=== PATIENT | male | born 1965 | race Caucasian/White ===

== ENCOUNTER 2020-10-26 13:49 | Inpatient (IN) | payer MEDICARE ==
[~2020-10-26] VITALS: Ht 182.9 cm; Wt 58.1 kg
--- NOTE | 2020-10-26 14:23 | EKG ---
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
--- NOTE | 2020-10-26 14:43 | PHYS DOC ---
Past History Past Medical History: Schizophrenia Smoking: Cigarettes (2 packs/day) Alcohol Use: Heavy Adult General Chief Complaint Chief Complaint: SHORTNESS OF BREATH HPI HPI Patient is a 55-year-old male presenting for shortness of breath. States this has been ongoing for past 2 weeks. Has history of smoking 2 packs cigarettes daily. No change in health. States he saw his primary care physician roughly 2.5 weeks ago and was tested for Covid, he does not know what the results were. Takes an injection infrequently for schizophrenia otherwise no other medications taken on a daily basis. No history of cardiac abnormalities, does not utilize inhalers at home. Reports ongoing shortness of breath and productive cough, no change in sputum purulence or production. No fever or known COVID-19 contact, no chest pain, abdominal pain, urinary symptoms. Was brought in by his mother because he started voicing feelings of dizziness to his mother while at home and has had several episodes of witnessed mechanical falls with patient hitting his head without loss of consciousness. He is not on any blood thinners/ anticoagulants Review of Systems Review of Systems Fourteen body systems of review of systems have been reviewed. See HPI for pertinent positives and negative responses, other smith all other systems are negative, non-pertinent or non-contributory Current Medications Current Medications Current Medications Medications (Trade) Dose Ordered Sig/Alba Start Time Stop Time Status Last Admin Dose Admin Aspirin (Aspirin Chewable) 162 mg 1X ONCE 10/26/20 14:45 10/26/20 14:50 DC 10/26/20 15:29 Azithromycin (Zithromax) 500 mg STK-MED ONCE 10/26/20 15:38 10/26/20 15:38 DC Azithromycin 500 mg/Sodium Chloride 250 ml @ 250 mls/hr 1X ONCE 10/26/20 15:30 10/26/20 16:29 DC 10/26/20 15:42 Ceftriaxone Sodium 1 gm/ Sodium Chloride 50 ml @ 100 mls/hr 1X ONCE 10/26/20 15:30 10/26/20 15:59 DC 10/26/20 15:32 Ceftriaxone Sodium (Rocephin) 1 gm STK-MED ONCE 10/26/20 15:31 10/26/20 15:31 DC Prednisone (Prednisone) 60 mg 1X ONCE 10/26/20 15:45 10/26/20 15:57 DC 10/26/20 15:49 Sodium Chloride 1,000 ml @ 125 mls/hr 1X ONCE 10/26/20 15:45 10/26/20 23:44 10/26/20 15:51 Allergies Allergies Allergies Coded Allergies Type Severity Reaction Last Updated Verified No Known Drug Allergies 10/26/20 No Physical Exam Physical Exam Constitutional: GCS 15, appears disheveled, poor hygiene HEENT: Head: Normocephalic and atraumatic. TMs clear, no hemotympanum, negative arellano sign Conjunctivae and EOM are normal. Pupils are equal, round, and reactive to light. Oropharynx is clear and moist. No hematomas or lacerations or abrasions to face or scalp OP clear, no blood, no malocclusion, dentition intact Nares clear, no nasal septal hematoma Midface stable, abrasion noted to left superior portion of cheekbone Neck: C-spine midline nontender, no step-offs, no nuchal rigidity Cardiovascular: Tachycardic, regular rhythm and normal heart sounds. Pulmonary/Chest: No respiratory distress but is tachypneic. Exhibits increased work of breathing with diffuse wheezes and rhonchi bilaterally Abdominal: Soft. Bowel sounds are normal. Pt exhibits no distension. There is no tender ness. Musculoskeletal: No bony tenderness to extremities, no deformities, full ROM extremities Chest wall stable Pelvis stable and non-tender No vertebral TTP and spine without stepoffs Neurological: Pt is alert and oriented to person, place, and time. Moving all extremities willfully, able to wiggle all fingers and toes Alert and oriented x 3 Motor and sensory function intact Unstable gait Skin: Skin is warm and dry. No abrasions, no lacerations Psychiatric: Tangential, odd affect, elated mood Current Patient Data Vital Signs Vital Signs Date Time Temp Pulse Resp B/P (MAP) Pulse Ox O2 Delivery O2 Flow Rate FiO2 10/26/20 14:36 96 21 138/101 (113) 99 Nasal Cannula 3.0 10/26/20 13:49 98.9 126 28 157/78 (104) 85 Room Air Lab Results Laboratory Tests Test 10/26/20 14:30 10/26/20 15:28 10/26/20 15:55 White Blood Count 13.4 x10^3/uL Red Blood Count 4.79 x10^6/uL Hemoglobin 15.2 g/dL Hematocrit 45.6 % Mean Corpuscular Volume 95 fL Mean Corpuscular Hemoglobin 32 pg Mean Corpuscular Hemoglobin Concent 33 g/dL Red Cell Distribution Width 12.8 % Platelet Count 260 x10^3/uL Neutrophils (%) (Auto) 87 % Lymphocytes (%) (Auto) 3 % Monocytes (%) (Auto) 10 % Eosinophils (%) (Auto) 0 % Basophils (%) (Auto) 0 % Neutrophils # (Auto) 11.7 x10^3uL Lymphocytes # (Auto) 0.4 x10^3/uL Monocytes # (Auto) 1.3 x10^3/uL Eosinophils # (Auto) 0.0 x10^3/uL Basophils # (Auto) 0.0 x10^3/uL Prothrombin Time 9.7 SEC Prothromb Time International Ratio 0.9 Activated Partial Thromboplast Time 29 SEC D-Dimer ([place]) 0.74 mg/L Sodium Level 115 mmol/L Potassium Level 4.4 mmol/L Chloride Level 78 mmol/L Carbon Dioxide Level 34 mmol/L Anion Gap 3 Blood Urea Nitrogen 12 mg/dL Creatinine 0.6 mg/dL Estimated GFR (Cockcroft-Gault) 139.4 BUN/Creatinine Ratio 20 Glucose Level 130 mg/dL Calcium Level 8.6 mg/dL Total Bilirubin 1.1 mg/dL Aspartate Amino Transf (AST/SGOT) 46 U/L Alanine Aminotransferase (ALT/SGPT) 30 U/L Alkaline Phosphatase 85 U/L Troponin I Quantitative < 0.017 ng/mL [id number] Natriuretic Peptide 272 pg/mL Total Protein 7.0 g/dL Albumin 3.5 g/dL Albumin/Globulin Ratio 1.0 Urine Opiates Screen Neg Urine Methadone Screen Neg Urine Barbiturates Neg Urine Phencyclidine Screen Neg Urine Amphetamine/Methamphetamine Neg Urine Benzodiazepines Screen Neg Urine Cocaine Screen Neg Urine Cannabinoids Screen Pos Urine Ethyl Alcohol Neg Ethyl Alcohol Level < 10 mg/dL Urine Collection Type Unknown Urine Color [place] Urine Clarity Clear Urine pH 6.5 Urine Specific [place] 1.025 Urine Protein 100 mg/dl Urine Glucose (UA) Neg mg/dL Urine Ketones (Stick) 40 mg/dL Urine Blood Trace Urine Nitrite Neg Urine Bilirubin Small Urine Urobilinogen Dipstick 2.0 mg/dL Urine Leukocyte Esterase Neg Urine RBC 0 /HPF Urine WBC 0 /HPF Urine Squamous Epithelial Cells None /LPF Urine Bacteria 0 /HPF Current Medications Medications (Trade) Dose Ordered Sig/Alba Route PRN Reason Start Time Stop Time Status Last Admin Dose Admin Aspirin (Aspirin Chewable) 162 mg 1X ONCE PO 10/26/20 14:45 10/26/20 14:50 DC 10/26/20 15:29 Ceftriaxone Sodium 1 gm/ Sodium Chloride 50 ml @ 100 mls/hr 1X ONCE IV 10/26/20 15:30 10/26/20 15:59 DC 10/26/20 15:32 Azithromycin 500 mg/Sodium Chloride 250 ml @ 250 mls/hr 1X ONCE IV 10/26/20 15:30 10/26/20 16:29 DC 10/26/20 15:42 Sodium Chloride 50 ml @ As Directed STK-MED ONCE .ROUTE 10/26/20 15:31 10/26/20 15:31 DC Ceftriaxone Sodium (Rocephin) 1 gm STK-MED ONCE .ROUTE 10/26/20 15:31 10/26/20 15:31 DC Sodium Chloride 250 ml @ As Directed STK-MED ONCE .ROUTE 10/26/20 15:38 10/26/20 15:38 DC Azithromycin (Zithromax) 500 mg STK-MED ONCE IV 10/26/20 15:38 10/26/20 15:38 DC Sodium Chloride 1,000 ml @ 125 mls/hr 1X ONCE IV 10/26/20 15:45 10/26/20 23:44 10/26/20 15:51 Prednisone (Prednisone) 60 mg 1X ONCE PO 10/26/20 15:45 10/26/20 15:57 DC 10/26/20 15:49 EKG EKG EKG ordered and interpreted by myself at 1426 hrs. as sinus rhythm at 97 bpm, unremarkable intervals, no axis deviation, incomplete bundle branch block, no acute ischemic findings, no STEMI Repeat EKG ordered and interpreted by myself at 1608 hrs. sinus rhythm at 5 bpm, unremarkable intervals, no axis deviation, incomplete right bundle branch, no acute ischemic findings no STEMI, no no change from prior Radiology/Procedures Radiology/Procedures AP chest. HISTORY: Short of breath AP view was taken of the chest. Lungs are free of acute infiltrates. Heart is normal in size. There is no pleural effusion. IMPRESSION: 1. No acute infiltrates. Electronically signed by: Angel Perez MD (10/26/2020 2:59 PM) [facility] HEAD INDICATION: Reason: Syncope, first ever episode / Spl. Instructions: / History: COMPARISON: 10/01/2005 Exposure: One or more of the following individualized dose reduction techniques were utilized for this examination: 1. Automated exposure control 2. Adjustment of the mA and/or kV according to patient size 3. Use of iterative reconstruction technique TECHNIQUE: 5 mm contiguous axial images were obtained from the skull base to the vertex in both bone and soft tissue algorithm. FINDINGS: Mild bilateral periventricular white matter hypodensities likely chronic small vessel ischemic disease. No evidence of acute intracranial hemorrhage. No extra-axial fluid collections. No mass effect or midline shift. Ventricular size is appropriate. Basal cisterns are patent. No fractures identified.Leon-white differentiation is preserved.Globes and orbits are within normal limits. Paranasal sinuses and mastoid air cells are clear. IMPRESSION: No acute intracranial findings. Electronically signed by: Jeovanny Noyola MD (10/26/2020 4:10 PM) [id number] Examination: CT angiography chest with IV contrast HISTORY: History of shortness of breath, elevated d-dimer COMPARISON: None available Technique: Axial CT angiographic images of chest were performed with IV contrast. Coronal and sagittal 3-D MIP reformats are performed. Exposure: One or more of the following individualized dose reduction techniques were utilized for this examination: 1. Automated exposure control 2. Adjustment of the mA and/or kV according to patient size 3. Use of iterative reconstruction technique FINDINGS: There is a 2.2 cm hypodense nodule left lobe of the thyroid gland. The central airways are patent. The ascending aorta measures 3.9 cm in transverse dimension. There is no evidence of filling defect identified in the main pulmonary arterial trunk and right and left main pulmonary arteries and the visualized lobar, segmental branches of the pulmonary arteries. Moderate bilateral lung emphysematous changes. There are faint patchy airspace opacities identified in the right lung base with the small questionable cavitary nodule measuring 9 mm. The liver, spleen, adrenals grossly appears unremarkable Cystic structure identified in the left kidney measuring 2.6 cm. Mild degenerative changes thoracic spine IMPRESSION: 1. No evidence of pulmonary embolism. 2. Faint patchy airspace opacities identified in the right lung base with small questionable cavitary nodule measuring 9 mm could be inflammatory or infectious etiology Follow-up to resolution. 3. Moderate bilateral lung emphysematous changes. 4. 2.2 cm hypodense nodule identified in the left lobe of the thyroid gland. Follow-up nonemergent ultrasound thyroid gland can be considered. Electronically signed by: Jeovanny Noyola MD (10/26/2020 4:55 PM) [id number] Heart Score HEART Score for Chest Pain: HEART Score for Chest Pain Response (Comments) Value History Slighlty/Non-Suspicious 0 ECG Normal 0 Age >45 - < 65 1 Risk Factors 1 or 2 Risk Factors 1 Troponin < Normal Limit 0 Total 2 Risk Factors: Risk Factors: DM, Current or recent (<one month) smoker, HTN, HLP, family history of CAD, obesity. Risk Scores: Risk Factors: DM, Current or recent (<one month) smoker, HTN, HLP, family history of CAD, obesity. Course & Med Decision Making Course & Med Decision Making Pertinent Labs and Imaging studies reviewed. (See chart for details) Discussed most concerning finding of hyponatremia with patient, likely due to ongoing alcohol abuse and likely psychiatric medication. I also discussed concern for right lower lobe pneumonia that would best respond to IV antibiotic therapy given clinical scenario I contacted patient's primary care physician who will also serve as hospitalist, he agreed need for admission and accepted patient under his care in ICU setting Patient tolerated ER intervention well. IV normal saline started, further diagnostic work-up to better determine cause of patient's hyponatremia added on, IV antibiotics administered. All questions and concerns addressed prior to ER transport to [facility] for admission Critical Care Time This patient required critical care. Due to the fact that the patient required a significant amount of one on one physician - patient contact time, ordering and review of studies, arranging urgent treatment with development of a management plan, evaluation of patients response to treatment with frequent reassessments, and discussions with other providers this patient required 65 minutes of critical care time. Critical care time was indicated due to the inherent instability and/or potential for instability in this patient. The critical care time that is allocated to this patient is above and beyond any time spent on any other billable procedures performed on this patient. Dragon Disclaimer Dragon Disclaimer This electronic medical record was generated, in whole or in part, using a voice recognition dictation system. Departure Departure: Impression: Primary Impression: Hyponatremia Additional Impressions: Person under investigation for COVID-19 Sepsis Right lower lobe pneumonia Left thyroid nodule Disposition: ADMITTED INPT THIS HOSP (ICU) Admitting Physician: Abimael Suazo Condition: CRITICAL Referrals: ABIMAEL SUAZO MD (PCP) Problem Qualifiers JULIETTE CARTER DO Oct 26, 2020 14:43
[2020-10-26] MEDS ORDERED: ASPIRIN CHEWABLE 81 MG TABLET. PO ONE (14:45)
[2020-10-26 15:10] LABS: BASO % 0 % (0-3); EOS % 0 % (0-3); HEMATOCRIT 45.6 % (39.0-53.0); HEMOGLOBIN 15.2 g/dL (13.0-17.5); LYMPH # 0.4 x10^3/uL (1.0-4.8); LYMPH % 3 % (24-48); MEAN CORPUSCULAR HEMOGLOBIN 32 pg (25-35); MEAN CORPUSCULAR HGB CONC 33 g/dL (31-37); MEAN CORPUSCULAR VOLUME 95 fL (79-100); MONO # 1.3 x10^3/uL (0.0-1.1); MONO % 10 % (0-9); NEUT # 11.7 x10^3uL (1.8-7.7); NEUT % 87 % (31-73); PLATELET COUNT 260 x10^3/uL (140-400); RED BLOOD COUNT 4.79 x10^6/uL (4.30-5.70); RED CELL DISTRIBUTION WIDTH 12.8 % (11.5-14.5); WHITE BLOOD COUNT 13.4 x10^3/uL (4.0-11.0)
--- NOTE | 2020-10-26 15:10 | RAD ---
AP chest. HISTORY: Short of breath AP view was taken of the chest. Lungs are free of acute infiltrates. Heart is normal in size. There i s no pleural effusion. IMPRESSION: 1. No acute infiltrates. Electronically signed by: Angel Perez MD (10/26/2020 2:59 PM) [facility]
[2020-10-26 15:28] LABS: ALBUMIN 3.5 g/dL (3.4-5.0); CALCIUM 8.6 mg/dL (8.5-10.1); CREATININE 0.6 mg/dL (0.7-1.3); GFR 139.4; POTASSIUM 4.4 mmol/L (3.5-5.1); TOTAL BILIRUBIN 1.1 mg/dL (0.2-1.0)
[2020-10-26] MEDS ORDERED: AZITHROMYCIN 500 MG in IV NORMAL SALINE 250ML 250 ML IV ONE (15:30)
[2020-10-26] MEDS ORDERED: IV NORMAL SALINE 50ML 50 ML ONE (15:31)
[2020-10-26] MEDS ORDERED: cefTRIAXone SODIUM 1 GM VIAL ONE (15:31)
[2020-10-26] MEDS ORDERED: AZITHROMYCIN 500 MG VIAL. IV ONE (15:38)
[2020-10-26] MEDS ORDERED: IV NORMAL SALINE 250ML 250 ML ONE (15:38)
[2020-10-26] MEDS ORDERED: predniSONE 20 MG TABLET PO ONE (15:45)
[2020-10-26] MEDS ORDERED: IV NORMAL SALINE 1,000ML 1,000 ML IV ONE (15:45)
[2020-10-26] MEDS ORDERED: IOHEXOL 350 MG/ML 100 ML VIAL. IV ONE (16:00)
--- NOTE | 2020-10-26 16:13 | RAD ---
CT HEAD INDICATION: Reason: Syncope, first ever episode / Spl. Instructions: / History: COMPARISON: 10/01/2005 Exposure: One or more of the following individualized dose reduction techniques were utilized for thi s examination: 1. Automated exposure control 2. Adjustment of the mA and/or kV according to patient size 3. Use of iterative reconstruction technique TECHNIQUE: 5 mm contiguous axial images were obtained from the skull base to the vertex in both bone and soft tissue algorithm. FINDINGS: Mild bilateral periventricular white matter hypodensities likely chronic small vessel ischemic diseas e. No evidence of acute intracranial hemorrhage. No extra-axial fluid collections. No mass effect or midline shift. Ventricular size is appropriate. Basal cisterns are patent. No fractures identified.Leon-white differentiation is preserved.Globes and orbits are within normal l imits. Paranasal sinuses and mastoid air cells are clear. IMPRESSION: No acute intracranial findings. Electronically signed by: Jeovanny Noyola MD (10/26/2020 4:10 PM) [id number]
[2020-10-26 16:21] LABS: BARBITURATES NEG (NEG); BENZODIAZEPINES NEG (NEG); CANNABINOIDS POS (NEG); COCAINE NEG (NEG); METHADONE NEG (NEG); OPIATES NEG (NEG); PHENCYCLIDINE NEG (NEG)
[2020-10-26 16:24] LABS: AMPHETAMINE/METHAMPHETAMINE NEG (NEG)
--- NOTE | 2020-10-26 16:30 | EKG ---
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
[2020-10-26 16:35] LABS: BACTERIA,URINE 0 /HPF (0-FEW); BILIRUBIN,URINE SMALL (NEG); CLARITY,URINE CLEAR; COLOR,URINE AMBER; GLUCOSE,URINE NEG (NEG); NITRITE,URINE NEG (NEG); RBC,URINE 0 /HPF (0-2); WBC,URINE 0 /HPF (0-4)
--- NOTE | 2020-10-26 16:59 | RAD ---
Examination: CT angiography chest with IV contrast HISTORY: History of shortness of breath, elevated d-dimer COMPARISON: None available Technique: Axial CT angiographic images of chest were performed with IV contrast. Coronal and sagitta l 3-D MIP reformats are performed. Exposure: One or more of the following individualized dose reduction techniques were utilized for thi s examination: 1. Automated exposure control 2. Adjustment of the mA and/or kV according to patient size 3. Use of iterative reconstruction technique FINDINGS: There is a 2.2 cm hypodense nodule left lobe of the thyroid gland. The central airways are patent. Th e ascending aorta measures 3.9 cm in transverse dimension. There is no evidence of filling defect areli ntified in the main pulmonary arterial trunk and right and left main pulmonary arteries and the visua lized lobar, segmental branches of the pulmonary arteries. Moderate bilateral lung emphysematous wei ges. There are faint patchy airspace opacities identified in the right lung base with the small quest ionable cavitary nodule measuring 9 mm. The liver, spleen, adrenals grossly appears unremarkable Cystic structure identified in the left kidney measuring 2.6 cm. Mild degenerative changes thoracic s pine IMPRESSION: 1. No evidence of pulmonary embolism. 2. Faint patchy airspace opacities identified in the right lung base with small questionable cavita ry nodule measuring 9 mm could be inflammatory or infectious etiology Follow-up to resolution. 3. Moderate bilateral lung emphysematous changes. 4. 2.2 cm hypodense nodule identified in the left lobe of the thyroid gland. Follow-up nonemergent u ltrasound thyroid gland can be considered. Electronically signed by: Jeovanny Noyola MD (10/26/2020 4:55 PM) [id number]
--- NOTE | 2020-10-26 17:00 | NUR ---
The patient, WHITNEY BALTAZAR, 55 y/o, M admitted by ABIMAEL SUAZO MD, was given written information regarding hospital policies, unit procedures and contact persons. Valuables were checked and left with patient. Call light in reach. WCM
[2020-10-26 17:30] VITALS: BP 145/116
[2020-10-26] MEDS ORDERED: MVI, ADULT NO.4 WITH VIT K 10 ML, FOLIC ACID INJ 1 MG, THIAMINE INJ 100 MG in IV NORMAL... IV ONE (18:15)
[2020-10-26 20:00] VITALS: BP 138/96
[2020-10-26 21:12] VITALS: BP 133/89
[2020-10-26 21:53] VITALS: BP 104/65
[2020-10-26 23:03] VITALS: BP 125/90
[2020-10-27] VITALS (23 sets, daily range): BP systolic 100–161; BP diastolic 63–115
[2020-10-27 06:42] LABS: BASO # 0.1 x10^3/uL (0.0-0.2); BASO % 1 % (0-3); EOS % 0 % (0-3); HEMATOCRIT 42.1 % (39.0-53.0); LYMPH # 0.5 x10^3/uL (1.0-4.8); LYMPH % 4 % (24-48); MEAN CORPUSCULAR HEMOGLOBIN 32 pg (25-35); MEAN CORPUSCULAR HGB CONC 33 g/dL (31-37); MEAN CORPUSCULAR VOLUME 95 fL (79-100); MONO # 1.6 x10^3/uL (0.0-1.1); MONO % 13 % (0-9); NEUT % 82 % (31-73); PLATELET COUNT 223 x10^3/uL (140-400); RED BLOOD COUNT 4.42 x10^6/uL (4.30-5.70); RED CELL DISTRIBUTION WIDTH 12.4 % (11.5-14.5); WHITE BLOOD COUNT 12.1 x10^3/uL (4.0-11.0)
[2020-10-27 07:01] LABS: ALBUMIN 2.9 g/dL (3.4-5.0); ALBUMIN/GLOBULIN RATIO 0.9 (1.0-1.7); ALK PHOS 70 U/L (46-116); ALT (SGPT) 24 U/L (16-63); ANION GAP 1 (6-14); AST (SGOT) 33 U/L (15-37); BLOOD UREA NITROGEN 8 mg/dL (8-26); BUN/CREATININE RATIO 27 (6-20); CARBON DIOXIDE 36 mmol/L (21-32); CHLORIDE 85 mmol/L (98-107); CREATININE 0.3 mg/dL (0.7-1.3); GFR > 300.0; GLUCOSE 146 mg/dL (70-99); SODIUM 122 mmol/L (136-145); TOTAL BILIRUBIN 0.6 mg/dL (0.2-1.0); TOTAL PROTEIN 6.1 g/dL (6.4-8.2)
--- NOTE | 2020-10-27 09:00 | NUR ---
pt has been restless and impulsive. Pt wanting to go smoke. Pt pulling on line. Redirected several times. Pt very congested. encouraged to deep cough. Pt stated on inhaler.
[2020-10-27] MEDS: NICOTINE 7MG PATCH. TD SCH (11:00)
[2020-10-27] MEDS: AZITHROMYCIN 250 MG TABLET. PO SCH (11:00)
[2020-10-27] MEDS: OLANZapine 5 MG TABLET PO SCH (11:00)
--- NOTE | 2020-10-27 11:00 | NUR ---
Pt restless and impulsive. Refused Ativan and nicotine patch. Dr Mackenzie here to see pt. Pt now agreeable to ativan and patch. IV restarted in LFA 20 gauge. Orders noted NS started.
[2020-10-27] MEDS: IV NORMAL SALINE 1,000ML 1,000 ML IV SCH ×2 (11:15→20:57)
[2020-10-27] MEDS: IPRATROPIUM/ALBUTEROL 20/100mcg/INH INHALER. INH SCH ×3 (12:00→20:56)
[2020-10-27] MEDS ORDERED: IPRATRPIUM/ALBUTEROL 0.5/2.5MG 3 ML NEBU. NEB SCH (12:00)
--- NOTE | 2020-10-27 12:57 | HP ---
ADMIT DATE: 10/26/2020 HISTORY OF PRESENT ILLNESS: A 55-year-old gentleman came in through the Emergency Room with increased shortness of breath, had a history of smoking 2 packs of cigarettes a day. The patient was seen by some other physician. He had a COVID test as noted, the results later, but in any case, the patient has some history of schizophrenia, but not taking any medication and for this point is the patient has been falling and then was found that his sodium was 115. As a result of the complicated matters here, the patient was admitted for IV antibiotic use at first, also some normal saline as well as some possible breathing treatments to make further evaluation on him as indicated. PAST MEDICAL HISTORY: Includes that of schizophrenia, tobacco abuse and alcohol abuse. He says he drinks about 3-4 beers a night and 2 shots of whiskey; smokes very heavily, has withdrawals if he does not smoke. FAMILY HISTORY: Unobtainable. ALLERGIES: He has no known drug allergies. MEDICATIONS: As noted he has not been taking his home medications and not quite sure even what they are. REVIEW OF SYSTEMS: As noted, some coughing, generalized weakness, obviously schizoid personality with multiple abrasions on his left forehead as well as his right knee scabbed over. He fell a few days ago and has some infection in there. PHYSICAL EXAMINATION: GENERAL: This is a white male, looking older than stated age, has somewhat of a schizoid appearance, somewhat agitated, lot of motor activity, unable to concentrate. VITAL SIGNS: Blood pressure 140/105, came down, however; respiratory rate 20; pulse 90-100; afebrile; 3 liters at 98 per nasal cannula. HEENT: The patient's head was noted with some traumatic, some bruising to the forehead from his fall at home. NECK: Supple. Poor dentition. LUNGS: Show some expiratory wheezes. CARDIOVASCULAR: Tachycardic. ABDOMEN: Soft, nontender, no rebounding, no guarding. Positive bowel sounds. MUSCULOSKELETAL: The patient has marked atrophy to his musculoskeletal system as if he has not been eating good protein diet as he has atrophy of his musculoskeletal system for a man his age. EXTREMITIES: No clubbing, cyanosis, nor edema. NEUROLOGIC: Alert, as noted just fixated on his cigarettes, he drinks daily. He has been given a banana bag, Ativan for that. IMPRESSION: Therefore, severe hyponatremia with a sodium down in the 115 range. BUN and creatinine of 12 and 0.6. Blood sugar 130. Bilirubin slightly elevated; AST of 46, has come down. He has severe protein malnutrition of 2.9. White count slightly elevated. Multiple abrasions to his knee and to his forehead consistent with small infections superficial cellulitis to those areas. X-rays have been taken. CAT scan was taken of his head and that was negative. Chest x-ray showed possible some type of cavitary nodule, could be inflammatory; however, there was a hypodense nodules and of course those need to be evaluated. He also has some problems, possibly with his thyroid and needs a thyroid scan on that. So, he will be placed on antibiotics, breathing treatments, normal saline, fluid restriction. He has been placed back on Zyprexa and we will continue to monitor him on his multiple medical issues. Try to get better nutrition. Place him on a high protein diet, thyroid nodule needs to be evaluated and we will continue to monitor the patient on the multiplicity of medical issues with this young man. ABIMAEL SUAZO MD DR: RANDAL/mckenna JOB#: [id number] / [id number]
[2020-10-27] MEDS: CEPHALEXIN 250 MG CAPSULE PO SCH ×2 (14:00→20:56)
[2020-10-27] MEDS ORDERED: PALI156D IM (15:57)
--- NOTE | 2020-10-27 16:15 | NUR ---
Ativan given for restlessness. Minimal effect noted from previous dose.
[2020-10-27] MEDS: LORazepam 0.5 MG TABLET PO PRN ×2 (16:22→22:53)
[2020-10-28] VITALS (12 sets, daily range): BP systolic 90–138; BP diastolic 51–104
--- NOTE | 2020-10-28 05:10 | NUR ---
Pt resting in bed with eyes closed at change of shift. Pt alert to self, confused and impulsive at times. Pt ate HS snack and was compliant with medications, but resistive at first to taking anything. Pt with elevated HR and "shakes", possibly d/t Etoh withdrawal, hx of daily drinking per report. Pt given PRN Ativan three times during shift for anxiety and restlessness. Pt up to BSC once with assist and incont twice during shift. Pt very unsteady and forgets limitations. Bed alarm on.
[2020-10-28] MEDS ORDERED: HALOPERIDOL LACT 5 MG/ML VIAL. IM PRN (06:45)
[2020-10-28] MEDS ORDERED: diphenhydrAMINE 50 MG/ML VIAL IVP PRN (06:45)
[2020-10-28] MEDS ORDERED: cloNIDine HCL 0.1 MG TABLET PO PRN (06:45)
[2020-10-28] MEDS ORDERED: METOPROLOL TARTRATE 5 MG/5 ML VIAL. IV ONE (06:45)
[2020-10-28 06:54] LABS: BASO # 0.1 x10^3/uL (0.0-0.2); BASO % 1 % (0-3); EOS % 0 % (0-3); HEMATOCRIT 42.9 % (39.0-53.0); HEMOGLOBIN 14.1 g/dL (13.0-17.5); LYMPH # 0.5 x10^3/uL (1.0-4.8); LYMPH % 5 % (24-48); MEAN CORPUSCULAR HEMOGLOBIN 32 pg (25-35); MEAN CORPUSCULAR HGB CONC 33 g/dL (31-37); MEAN CORPUSCULAR VOLUME 97 fL (79-100); MONO # 1.8 x10^3/uL (0.0-1.1); MONO % 16 % (0-9); NEUT # 8.7 x10^3uL (1.8-7.7); NEUT % 78 % (31-73); PLATELET COUNT 233 x10^3/uL (140-400); RED BLOOD COUNT 4.43 x10^6/uL (4.30-5.70); WHITE BLOOD COUNT 11.1 x10^3/uL (4.0-11.0)
[2020-10-28 07:11] LABS: ALBUMIN/GLOBULIN RATIO 0.9 (1.0-1.7); ALK PHOS 74 U/L (46-116); ALT (SGPT) 23 U/L (16-63); ANION GAP 1 (6-14); AST (SGOT) 24 U/L (15-37); BLOOD UREA NITROGEN 5 mg/dL (8-26); BUN/CREATININE RATIO 17 (6-20); CALCIUM 8.1 mg/dL (8.5-10.1); CARBON DIOXIDE 37 mmol/L (21-32); CHLORIDE 94 mmol/L (98-107); CREATININE 0.3 mg/dL (0.7-1.3); GFR > 300.0; GLUCOSE 145 mg/dL (70-99); POTASSIUM 4.1 mmol/L (3.5-5.1); SODIUM 132 mmol/L (136-145); TOTAL BILIRUBIN 0.3 mg/dL (0.2-1.0); TOTAL PROTEIN 6.3 g/dL (6.4-8.2)
[2020-10-28] MEDS: IPRATROPIUM/ALBUTEROL 20/100mcg/INH INHALER. INH SCH ×2 (08:00→11:48)
--- NOTE | 2020-10-28 08:38 | PDOC2 ---
CARDIAC CONSULT DATE OF CONSULT DOS: DATE: 10/28/20 TIME: 08:30 REASON FOR CONSULT Reason for Consult Tachycardia REFERRING PHYSICIAN Referring Physician Dr. Mackenzie SOURCE Source: Chart review, Patient HPI History of Present Illness This is a 55 yo male who presented secondary to shortness of breath, productive cough, and dizziness. Patient presently somnolent and unable to provided any history. Per chart review, patient has been short of air for the last 2 weeks. Saw primary care provided about 2 and a half weeks ago and was tested for COVID. Was reportedly negative. Does have a history of schizophrenia and is on monthly injections. Unclear what this is. No reports of chest pain. Patient has also been experiencing mechanical falls recently. Na level 115 upon arrival. Per staff, patient had been very agitated and confused since admission. Was given ativan for agitation. This morning, patient is somnolent and is in respiratory distress. Breathing is shallow with tachypnea. PAST MEDICAL HISTORY Pulmonary: COPD Psych: Schizophrenia PAST SURGICAL HISTORY Past Surgical History: No pertinent history FAMILY HISTORY Family History: Family History Unknown SOCIAL HISTORY Smoke: 2 packs per day ALCOHOL: heavy Drugs: Marijuana Lives: with Family CURRENT MEDICATIONS Current Medications Current Medications Aspirin (Aspirin Chewable) 162 mg 1X ONCE PO Last administered on 10/26/20at 15:29; Start 10/26/20 at 14:45; Stop 10/26/20 at 14:50; Status DC Ceftriaxone Sodium 1 gm/ Sodium Chloride 50 ml @ 100 mls/hr 1X ONCE IV Last administered on 10/26/20at 15:32; Start 10/26/20 at 15:30; Stop 10/26/20 at 15:59; Status DC Azithromycin 500 mg/Sodium Chloride 250 ml @ 250 mls/hr 1X ONCE IV Last administered on 10/26/20at 15:42; Start 10/26/20 at 15:30; Stop 10/26/20 at 16:29; Status DC Sodium Chloride 50 ml @ As Directed STK-MED ONCE .ROUTE ; Start 10/26/20 at 15:31; Stop 10/26/20 at 15:31; Status DC Ceftriaxone Sodium (Rocephin) 1 gm STK-MED ONCE .ROUTE ; Start 10/26/20 at 15:31; Stop 10/26/20 at 15:31; Status DC Sodium Chloride 250 ml @ As Directed STK-MED ONCE .ROUTE ; Start 10/26/20 at 1 5:38; Stop 10/26/20 at 15:38; Status DC Azithromycin (Zithromax) 500 mg STK-MED ONCE IV ; Start 10/26/20 at 15:38; Stop 10/26/20 at 15:38; Status DC Sodium Chloride 1,000 ml @ 125 mls/hr 1X ONCE IV Last administered on 10/26/20at 15:51; Start 10/26/20 at 15:45; Stop 10/26/20 at 23:44; Status DC Prednisone (Prednisone) 60 mg 1X ONCE PO Last administered on 10/26/20at 15:49; Start 10/26/20 at 15:45; Stop 10/26/20 at 15:57; Status DC Iohexol (Omnipaque 350 Mg/ml) 100 ml 1X ONCE IV Last administered on 10/26/20at 16:15; Start 10/26/20 at 16:00; Stop 10/26/20 at 16:01; Status DC Multivitamins/ Minerals 10 ml/ Folic Acid 1 mg/ Thiamine HCl 100 mg/Sodium Chloride 1,011.2 ml @ 0 mls/hr 1X ONCE IV Last administered on 10/26/20at 22:03; Start 10/26/20 at 18:15; Stop 10/26/20 at 18:23; Status DC Lorazepam (Ativan) 0.5 mg PRN Q6HRS PRN PO ANXIETY / AGITATION Last administered on 10/27/20at 22:53; Start 10/26/20 at 19:30 Lorazepam (Ativan Inj) 0.5 mg PRN Q6HRS PRN IVP ANXIETY / AGITATION Last administered on 10/28/20at 05:37; Start 10/27/20 at 09:00 Olanzapine (ZyPREXA) 5 mg DAILY PO Last administered on 10/27/20at 11:00; Start 10/27/20 at 11:00 Nicotine (Nicoderm Cq 7mg Patch) 1 patch DAILY TD Last administered on 10/27/20at 11:00; Start 10/27/20 at 11:00 Cephalexin HCl (Keflex) 500 mg TID PO Last administered on 10/27/20at 20:56; Start 10/27/20 at 14:00 Nicotine (Nicoderm Cq 7mg Patch) 1 patch DAILY TD ; Start 10/28/20 at 09:00; Status UNV Azithromycin (Zithromax) 250 mg DAILY PO Last administered on 10/27/20at 11:00; Start 10/27/20 at 11:00 Sodium Chloride 1,000 ml @ 75 mls/hr [id number] IV Last administered on 10/27/20at 20:57; Start 10/27/20 at 11:15 Albuterol/ Ipratropium (Duoneb) 3 ml RTQID NEB ; Start 10/27/20 at 12:00; Status UNV Albuterol/ Ipratropium (Combivent Respimat 20-100 Mcg) 1 puff RTQID INH Last administered on 10/27/20at 20:56; Start 10/27/20 at 12:00 Metoprolol Tartrate (Lopressor Vial) 5 mg 1X ONCE IV Last administered on 10/28/20at 07:10; Start 10/28/20 at 06:45; Stop 10/28/20 at 07:05; Status DC Folic Acid (Folic Acid) 1 mg DAILY PO ; Start 11/02/20 at 09:00 Thiamine HCl (Vitamin B-1) 100 mg DAILY PO ; Start 11/02/20 at 09:00 Lorazepam (Ativan Inj) 2 mg PRN Q1HR PRN IV For CIWA 8-14; Start 10/28/20 at 06:45 Lorazepam (Ativan Inj) 4 mg PRN Q1HR PRN IV For CIWA 15 or greater; Start 10/28/20 at 06:45 Haloperidol Lactate (Haldol) 5 mg PRN Q4HRS PRN IM Hallucinatns,Confusn,Delirium; Start 10/28/20 at 06:45 Diphenhydramine HCl (Benadryl) 25 mg PRN Q15MIN PRN IVP EPS symptoms 2'Haldol admin; Start 10/28/20 at 06:45 Clonidine HCl (Catapres) 0.1 mg PRN Q1HR PRN PO SBP>180 OR DBP>100, MR X 3; Start 10/28/20 at 06:45 Lactobacillus Rhamnosus (Culturelle) 1 cap BID PO ; Start 10/28/20 at 09:00 Active Scripts Active Reported Invega Sustenna (Paliperidone Palmitate) 156 Mg/1 Ml Disp.syrin 1 Syr IM QMONTH ALLERGIES Allergies: Coded Allergies: No Known Drug Allergies (Unverified , 10/26/20) ROS Review of Systems unobtainable PHYSICAL EXAM General: mild distress Lungs: Other (tachypnea, shallow respirations) Abdomen: Soft Extremities: No edema Skin: No significant lesion Neuro: Other (somnolent ) MUSCULOSKELETAL: No deformity VITALS Vital Signs Vital Signs Date Time Temp Pulse Resp B/P (MAP) Pulse Ox O2 Delivery O2 Flow Rate FiO2 10/28/20 07:44 98.7 120 42 90/53 (65) 93 Nasal Cannula 2.0 LABS LABS Laboratory Tests Test 10/26/20 14:30 10/26/20 15:28 10/26/20 15:55 10/26/20 18:05 White Blood Count 13.4 x10^3/uL (4.0-11.0) Red Blood Count 4.79 x10^6/uL (4.30-5.70) Hemoglobin 15.2 g/dL (13.0-17.5) Hematocrit 45.6 % (39.0-53.0) Mean Corpuscular Volume 95 fL (79-100) Mean Corpuscular Hemoglobin 32 pg (25-35) Mean Corpuscular Hemoglobin Concent 33 g/dL (31-37) Red Cell Distribution Width 12.8 % (11.5-14.5) Platelet Count 260 x10^3/uL (140-400) Neutrophils (%) (Auto) 87 % (31-73) Lymphocytes (%) (Auto) 3 % (24-48) Monocytes (%) (Auto) 10 % (0-9) Eosinophils (%) (Auto) 0 % (0-3) Basophils (%) (Auto) 0 % (0-3) Neutrophils # (Auto) 11.7 x10^3uL (1.8-7.7) Lymphocytes # (Auto) 0.4 x10^3/uL (1.0-4.8) Monocytes # (Auto) 1.3 x10^3/uL (0.0-1.1) Eosinophils # (Auto) 0.0 x10^3/uL (0.0-0.7) Basophils # (Auto) 0.0 x10^3/uL (0.0-0.2) Prothrombin Time 9.7 SEC (9.4-11.4) Prothromb Time International Ratio 0.9 (0.9-1.1) Activated Partial Thromboplast Time 29 SEC (23-33) D-Dimer ([place]) 0.74 mg/L (0.00-0.50) Sodium Level 115 mmol/L (136-145) Potassium Level 4.4 mmol/L (3.5-5.1) Chloride Level 78 mmol/L (98-107) Carbon Dioxide Level 34 mmol/L (21-32) Anion Gap 3 (6-14) Blood Urea Nitrogen 12 mg/dL (8-26) Creatinine 0.6 mg/dL (0.7-1.3) Estimated GFR (Cockcroft-Gault) 139.4 BUN/Creatinine Ratio 20 (6-20) Glucose Level 130 mg/dL (70-99) Calcium Level 8.6 mg/dL (8.5-10.1) Total Bilirubin 1.1 mg/dL (0.2-1.0) Aspartate Amino Transf (AST/SGOT) 46 U/L (15-37) Alanine Aminotransferase (ALT/SGPT) 30 U/L (16-63) Alkaline Phosphatase 85 U/L (46-116) Troponin I Quantitative < 0.017 ng/mL (0-0.055) < 0.017 ng/mL (0-0.055) AH-Ygz-I-Type Natriuretic Peptide 272 pg/mL (0-124) Total Protein 7.0 g/dL (6.4-8.2) Albumin 3.5 g/dL (3.4-5.0) Albumin/Globulin Ratio 1.0 (1.0-1.7) Urine Opiates Screen Neg (NEG) Urine Methadone Screen Neg (NEG) Urine Barbiturates Neg (NEG) Urine Phencyclidine Screen Neg (NEG) Urine Amphetamine/Methamphetamine Neg (NEG) Urine Benzodiazepines Screen Neg (NEG) Urine Cocaine Screen Neg (NEG) Urine Cannabinoids Screen Pos (NEG) Urine Ethyl Alcohol Neg (NEG) Ethyl Alcohol Level < 10 mg/dL (0-10) Urine Collection Type Unknown Urine Color [place] Urine Clarity Clear Urine pH 6.5 Urine Specific [place] 1.025 Urine Protein 100 mg/dl (NEG-TRACE) Urine Glucose (UA) Neg mg/dL (NEG) Urine Ketones (Stick) 40 mg/dL (NEG) Urine Blood Trace (NEG) Urine Nitrite Neg (NEG) Urine Bilirubin Small (NEG) Urine Urobilinogen Dipstick 2.0 mg/dL (0.2 mg/dL) Urine Leukocyte Esterase Neg (NEG) Urine RBC 0 /HPF (0-2) Urine WBC 0 /HPF (0-4) Urine Squamous Epithelial Cells None /LPF Urine Bacteria 0 /HPF (0-FEW) Urine Random Sodium 15 mmol/L (Not Estab.) Test 10/26/20 20:55 10/27/20 06:10 10/28/20 06:30 Troponin I Quantitative < 0.017 ng/mL (0-0.055) < 0.017 ng/mL (0-0.055) White Blood Count 12.1 x10^3/uL (4.0-11.0) 11.1 x10^3/uL (4.0-11.0) Red Blood Count 4.42 x10^6/uL (4.30-5.70) 4.43 x10^6/uL (4.30-5.70) Hemoglobin 14.0 g/dL (13.0-17.5) 14.1 g/dL (13.0-17.5) Hematocrit 42.1 % (39.0-53.0) 42.9 % (39.0-53.0) Mean Corpuscular Volume 95 fL (79-100) 97 fL (79-100) Mean Corpuscular Hemoglobin 32 pg (25-35) 32 pg (25-35) Mean Corpuscular Hemoglobin Concent 33 g/dL (31-37) 33 g/dL (31-37) Red Cell Distribution Width 12.4 % (11.5-14.5) 13.0 % (11.5-14.5) Platelet Count 223 x10^3/uL (140-400) 233 x10^3/uL (140-400) Neutrophils (%) (Auto) 82 % (31-73) 78 % (31-73) Lymphocytes (%) (Auto) 4 % (24-48) 5 % (24-48) Monocytes (%) (Auto) 13 % (0-9) 16 % (0-9) Eosinophils (%) (Auto) 0 % (0-3) 0 % (0-3) Basophils (%) (Auto) 1 % (0-3) 1 % (0-3) Neutrophils # (Auto) 10.0 x10^3uL (1.8-7.7) 8.7 x10^3uL (1.8-7.7) Lymphocytes # (Auto) 0.5 x10^3/uL (1.0-4.8) 0.5 x10^3/uL (1.0-4.8) Monocytes # (Auto) 1.6 x10^3/uL (0.0-1.1) 1.8 x10^3/uL (0.0-1.1) Eosinophils # (Auto) 0.0 x10^3/uL (0.0-0.7) 0.0 x10^3/uL (0.0-0.7) Basophils # (Auto) 0.1 x10^3/uL (0.0-0.2) 0.1 x10^3/uL (0.0-0.2) Sodium Level 122 mmol/L (136-145) 132 mmol/L (136-145) Potassium Level 4.0 mmol/L (3.5-5.1) 4.1 mmol/L (3.5-5.1) Chloride Level 85 mmol/L (98-107) 94 mmol/L (98-107) Carbon Dioxide Level 36 mmol/L (21-32) 37 mmol/L (21-32) Anion Gap 1 (6-14) 1 (6-14) Blood Urea Nitrogen 8 mg/dL (8-26) 5 mg/dL (8-26) Creatinine 0.3 mg/dL (0.7-1.3) 0.3 mg/dL (0.7-1.3) Estimated GFR (Cockcroft-Gault) > 300.0 > 300.0 BUN/Creatinine Ratio 27 (6-20) 17 (6-20) Glucose Level 146 mg/dL (70-99) 145 mg/dL (70-99) Calcium Level 8.0 mg/dL (8.5-10.1) 8.1 mg/dL (8.5-10.1) Total Bilirubin 0.6 mg/dL (0.2-1.0) 0.3 mg/dL (0.2-1.0) Aspartate Amino Transf (AST/SGOT) 33 U/L (15-37) 24 U/L (15-37) Alanine Aminotransferase (ALT/SGPT) 24 U/L (16-63) 23 U/L (16-63) Alkaline Phosphatase 70 U/L (46-116) 74 U/L (46-116) Total Protein 6.1 g/dL (6.4-8.2) 6.3 g/dL (6.4-8.2) Albumin 2.9 g/dL (3.4-5.0) 3.0 g/dL (3.4-5.0) Albumin/Globulin Ratio 0.9 (1.0-1.7) 0.9 (1.0-1.7) Thyroid Stimulating Hormone (TSH) 0.282 uIU/mL (0.358-3.740) Creatine Kinase 97 U/L (39-308) ASSESSMENT/PLAN Assessment/Plan 1. Acute respiratory failure with AE COPD 2. Sinus tachycardia, reactive 3. Hyperthyroidism; TSH 0.2 4. Hyponatremia; improved 5. Tobaccoism, marijuana use 6. ETOH abuse 7. Metabolic encephalopathy 8. Noncompliance Recommendations Stat ABG. BiPAP CXR Monitor for withdrawal Further pending above JACKELYN CHONG APRN Oct 28, 2020 08:38
[2020-10-28] MEDS ORDERED: FLUMAZENIL 0.5 MG/5 ML VIAL. IV ONE (08:45)
[2020-10-28] MEDS ORDERED: LACTOBACILLUS RHAMNOSUS GG 1 CAPSULE. PO SCH (09:00)
[2020-10-28] MEDS ORDERED: DIGOXIN 125 MCG TABLET PO ONE (09:00)
[2020-10-28] MEDS: AZITHROMYCIN 250 MG TABLET. PO SCH (09:00)
[2020-10-28] MEDS: OLANZapine 5 MG TABLET PO SCH (09:00)
[2020-10-28] MEDS ORDERED: NICOTINE 7MG PATCH. TD SCH (09:00)
[2020-10-28] MEDS ORDERED: IPRATROPIUM BROMIDE 0.5 MG/2.5 ML NEBU. NEB ONE (09:30)
--- NOTE | 2020-10-28 09:44 | RAD ---
Portable AP chest. HISTORY: Increased short of breath, increased respiratory rate AP view was taken of the chest. There is mild basilar biapical pleural thickening and scarring unchan ged from an old study. Heart is normal in size. There is no pleural effusion. There are no new infilt rates. The density noted on the CT is poorly visualized on the chest x-ray. IMPRESSION: 1. No change from recent studies. 2. No new infiltrates. Electronically signed by: Angel Perez MD (10/28/2020 9:32 AM) [id number]
[2020-10-28] MEDS: FLUMAZENIL 0.5 MG/5 ML VIAL. IV ONE ×2 (09:50→10:06)
[2020-10-28 09:51] LABS: BGAS PH 7.19 (7.35-7.46)
[2020-10-28] MEDS: NICOTINE 7MG PATCH. TD SCH (10:08)
[2020-10-28] MEDS: IV NORMAL SALINE 1,000ML 1,000 ML IV SCH (10:28)
[2020-10-28] MEDS ORDERED: MIDAZOLAM HCL 50 MG in IV NORMAL SALINE 50ML 50 ML IV PRN (10:45)
--- NOTE | 2020-10-28 10:54 | PDOC ---
Progress Note. Date of Service: DOS: DATE: 10/28/20 TIME: 10:53 Subjective: Called by nursing tank builder supervisor that patient's condition in ICU setting was deteriorating. Patient had increased work of breathing with decreased oxygenation and ventilation, there was concern for impending respiratory collapse. They requested my presence for intubation per recommendations by primary team Objective: Vital Signs/I&O: Vital Signs Date Time Temp Pulse Resp B/P (MAP) Pulse Ox O2 Delivery O2 Flow Rate FiO2 10/28/20 09:57 100 NonRebreather Mask 12.0 10/28/20 09:57 99.7 120 41 118/79 (92) I & O 10/27/20 10/27/20 10/28/20 15:00 23:00 07:00 Intake Total 1840 ml 100 ml Output Total 100 ml 1250 ml Balance -100 ml 590 ml 100 ml Labs: Laboratory Tests Test 10/28/20 06:30 10/28/20 09:25 10/28/20 09:50 White Blood Count 11.1 x10^3/uL (4.0-11.0) H Red Blood Count 4.43 x10^6/uL (4.30-5.70) Hemoglobin 14.1 g/dL (13.0-17.5) Hematocrit 42.9 % (39.0-53.0) Mean Corpuscular Volume 97 fL (79-100) Mean Corpuscular Hemoglobin 32 pg (25-35) Mean Corpuscular Hemoglobin Concent 33 g/dL (31-37) Red Cell Distribution Width 13.0 % (11.5-14.5) Platelet Count 233 x10^3/uL (140-400) Neutrophils (%) (Auto) 78 % (31-73) H Lymphocytes (%) (Auto) 5 % (24-48) L Monocytes (%) (Auto) 16 % (0-9) H Eosinophils (%) (Auto) 0 % (0-3) Basophils (%) (Auto) 1 % (0-3) Neutrophils # (Auto) 8.7 x10^3uL (1.8-7.7) H Lymphocytes # (Auto) 0.5 x10^3/uL (1.0-4.8) L Monocytes # (Auto) 1.8 x10^3/uL (0.0-1.1) H Eosinophils # (Auto) 0.0 x10^3/uL (0.0-0.7) Basophils # (Auto) 0.1 x10^3/uL (0.0-0.2) Sodium Level 132 mmol/L (136-145) L Potassium Level 4.1 mmol/L (3.5-5.1) Chloride Level 94 mmol/L (98-107) L Carbon Dioxide Level 37 mmol/L (21-32) H Anion Gap 1 (6-14) L Blood Urea Nitrogen 5 mg/dL (8-26) L Creatinine 0.3 mg/dL (0.7-1.3) L Estimated GFR (Cockcroft-Gault) > 300.0 BUN/Creatinine Ratio 17 (6-20) Glucose Level 145 mg/dL (70-99) H Calcium Level 8.1 mg/dL (8.5-10.1) L Total Bilirubin 0.3 mg/dL (0.2-1.0) Aspartate Amino Transferase (AST) 24 U/L (15-37) Alanine Aminotransferase (ALT) 23 U/L (16-63) Alkaline Phosphatase 74 U/L (46-116) Creatine Kinase 97 U/L (39-308) Troponin I Quantitative < 0.017 ng/mL (0-0.055) Total Protein 6.3 g/dL (6.4-8.2) L Albumin 3.0 g/dL (3.4-5.0) L Albumin/Globulin Ratio 0.9 (1.0-1.7) L Blood pH 7.19 (7.35-7.46) *L Blood Gas PCO2 113 mmHg (35-46) *H Blood Gas PO2 103 mmHg (80-100) H Blood Gas HCO3 43 mmol/L (21-28) H Arterial Bld O2 Saturation (Calc) 95 % (92-99) FiO2 100 % Lactic Acid Level 0.5 mmol/L (0.4-2.0) Physical Exam: Gen.: Alert, in acute respiratory distress on BiPAP HEENT: Normocephalic atraumatic, PERRLA EOMI, no scleral icterus, oral mucosa pink and moist Neck: Supple, no lymphadenopathy, nontender Cardiovascular: Normal S1 and S2 no murmurs Pulmonary: Rhonchi present in bilateral lung jules, respiratory distress present with accessory muscle usage noted in neck and abdomen demonstrating increased work of breathing Abdomen: Soft nontender non-distended, bowel sounds present no masses Extremities: No clubbing, cyanosis or edema Neuro: Alert and oriented to person only, cranial nerves II through XII grossly intact, no lateralizing neuro deficits Skin: Warm, dry Plan: Patient successfully intubated in ER setting and stabilized prior to transport to outlying facility for higher acuity of care Intubation Intubation : Time of Intubation: 10:45 Tube Size (cm): 7.5 Medications: Succinylcholine Breath Sounds after Intubation: equal Intubation Complications: no complications Post Intubation Xray: Yes Progress/Xray Impression: In-place ET tube 6 cm above therese Progress I agreed with need for urgent intubation due to impending respiratory collapse as advised by primary team physician Patient does not have capacity, unable to contact next of kin to obtain consent. Patient a full code, implied consent due to medical necessity Timeout was performed to confirm right patient. Patient was put in appropriate position and 20 etomidate and subsequent 80 succinylcholine used. I used a MAC 3 blade and visualize cords placing a 7.5 ETT into appropriate position watching tube passed through cords on first attempt. Tube inflated, positive breath sounds noted in bilateral chest wall jules, positive CO2 change, subsequent x- ray ordered showing ETT in appropriate position. Tube was secured at 22 at lips JULIETTE CARTER DO Oct 28, 2020 10:54
[2020-10-28] MEDS ORDERED: MIDAZOLAM HCL PF 2 MG/2 ML VIAL. IVP ONE (11:15)
[2020-10-28] MEDS ORDERED: MIDAZOLAM HCL PF 5 MG/5 ML VIAL. ONE ×2 (11:17→12:00)
[2020-10-28] MEDS ORDERED: SUCCINYLCHOLINE 200 MG/10 ML VIAL. ONE ×2 (11:28→12:00)
[2020-10-28] MEDS ORDERED: MIDAZOLAM HCL PF 5 MG/5 ML VIAL. IV ONE ×2 (11:30→12:00)
[2020-10-28 11:39] LABS: BGAS PH 7.36 (7.35-7.46)
--- NOTE | 2020-10-28 11:46 | RAD ---
EXAM: XR CHEST 1V, XR ABDOMEN 1V INDICATION: Reason: post intubation / Spl. Instructions: / History: . TECHNIQUE: Single view COMPARISON: Earlier same day chest x-ray of 10/28/2020 at 8:22 AM FINDINGS: Interval endotracheal intubation. The ET tube tip terminates 6 cm above the therese. There is additional tubing overlying the endotracheal tube that could represent an incompletely advan ada enteric tube. The heart size is normal. The great vessels appear unremarkable. There is no hilar or mediastinal mass. The lungs are mildly hypoventilatory at the bases but otherwise clear. There is no pleural effusion or pneumothorax. There are no significant osseous abnormalities. IMPRESSION: Interval endotracheal intubation with the ET tube 6 cm above the therese. No acute superimposed proces s noted. There may be an enteric tube that terminates in the mid neck. PROCEDURE: XR CHEST 1V, XR ABDOMEN 1V STUDY DATE: 10/28/2020 CLINICAL INDICATION / HISTORY: Reason: post intubation / Spl. Instructions: / History: . TECHNIQUE: Single AP image of the abdomen was obtained. COMPARISON: Chest x-ray same day FINDINGS: The lung bases are hypoventilatory and show mild prominence of the pulmonary interstitium. No enteric tube is identified in the included field of view. A nonobstructive bowel gas pattern is pr esent. No organomegaly or pathologic calcifications are identified. No acute osseous abnormality. IMPRESSION: Patient's enteric tube is likely coiled in the mouth or cervical esophagus. Recommend rep ositioning and repeat imaging to confirm satisfactory positioning. Electronically signed by: Abdirizak Martins MD (10/28/2020 11:43 AM) [id number]
[2020-10-28] MEDS ORDERED: ETOMIDATE 40 MG/20 ML VIAL. ONE (12:00)
[2020-10-28] MEDS ORDERED: IPRATRPIUM/ALBUTEROL 0.5/2.5MG 3 ML NEBU. NEB SCH (12:00)
--- NOTE | 2020-10-28 12:00 | NUR ---
This morning upon shift assessment the patient was was found to be extremely lethargic with little to no response to verbal stimuli but I was able to elicit somewhat of a response with physical stimuli. Patient did received two doses of Ativan during slot shift supervisor which could have been a possible explantation for the lethargy but the patient also had a RR in the mid 40's along with a HR in the 120's. The patient was/has been on 3L NC with O2 Sats ranging in the mid 90's. Patient is nonfebrile. Dr Mackenzie arrived to the unit shortly after assessment of patient and he was made aware of the patients changing condition. Orders were received and implemented. EKG, Blood Gas, Chest X-ray, RT inhalation treatment along with a consultation for Cardiology. Shaila MAIER assessed the patient while Dr. Mackenzie was on the unit after discussing the patients condition and reviewing the patients labs and diagnostics the decision was made to intubate the patient with a transfer to [facility]. RT was on the unit and the ER physician and medic were called and notified of the need for intubation. Dr. Telles, Donte Medic, and Sonia CAOgarbage collector supervisor arrived to the unit to assist with the procedure. Patient does not have capacity, unable to contacted next of kin to obtain consent. Patient is a full code, implied consent due to medical necessity. Timeout was performed by Dr. Telles and nursing team to confirm right patient. Patient was put in appropriate position and 20 etomidate and subsequent [address] Telles used a MAC 3 blade and visualize cords placing a 7.5 ETT into appropriate position watching tube pass through cords on first attempt. Tube inflated, positive breath sounds noted in bilateral chest wall jules, positive CO2 change, subsequent x-ray ordered showing ETT in appropriate position. Tube was secured at 22 at lips. NG tube inserted in right nare secured at 22 nare, confirmed by auscultation. Chest xray ordered for confirmation. Patient was placed on Versad gtt for sedation. Patient prepared for transfer to [facility] ICU room 116, report called to Rose CAO patient left the unit via EMS.
--- NOTE | 2020-10-28 13:09 | EKG ---
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
[2020-10-29 10:09] LABS: URINE OSMOLALITY 534 mOsmol/kg (.)
[2020-11-02] MEDS ORDERED: FOLIC ACID 1 MG TABLET PO SCH (09:00)
[2020-11-02] MEDS ORDERED: THIAMINE 100 MG TABLET. PO SCH (09:00)
== END 2020-10-28 12:00 | disposition short-term general hospital (02) | DRG 871 ==
LOC: ER 13:49 → ICU 15:45
PROVIDERS: ADMIT Family Medicine; ATTEND Family Medicine
PROC: 5A1935Z Respiratory Ventilation, Less than 24 Consecutive Hours (ICD-10-PCS; principal; 2020-10-28)
PROC: 0BH17EZ Insertion of Endotracheal Airway into Trachea, Via Natural or Artificial Opening (ICD-10-PCS; 2020-10-28)
PROC: 5A09357 Assistance with Respiratory Ventilation, Less than 24 Consecutive Hours, Continuous Positive Airway Pressure (ICD-10-PCS; 2020-10-28)
DX: A41.9 Sepsis, unspecified organism (principal); E43 Unspecified severe protein-calorie malnutrition; G93.41 Metabolic encephalopathy; J18.9 Pneumonia, unspecified organism; J96.00 Acute respiratory failure, unspecified whether with hypoxia or hypercapnia; E87.1 Hypo-osmolality and hyponatremia; L03.90 Cellulitis, unspecified; Z68.1 Body mass index [BMI] 19.9 or less, adult; J44.0 Chronic obstructive pulmonary disease with (acute) lower respiratory infection; J44.1 Chronic obstructive pulmonary disease with (acute) exacerbation; E05.90 Thyrotoxicosis, unspecified without thyrotoxic crisis or storm; F10.10 Alcohol abuse, uncomplicated; Z20.822 Contact with and (suspected) exposure to COVID-19; E04.1 Nontoxic single thyroid nodule; R00.0 Tachycardia, unspecified; F12.90 Cannabis use, unspecified, uncomplicated; F17.210 Nicotine dependence, cigarettes, uncomplicated; F20.9 Schizophrenia, unspecified; S80.219A Abrasion, unspecified knee, initial encounter; X58.XXXA Exposure to other specified factors, initial encounter; Y93.89 Activity, other specified; Y92.89 Other specified places as the place of occurrence of the external cause; Y99.8 Other external cause status
CPT/HCPCS: 36415; 70450; 71045; 71275; 74018; 80053; 80307; 81001; 82550; 82803; 83605; 83880; 83930; 83935; 84300; 84443; 84484; 85025; 85379; 85610; 85730; 93005; 94002; 94640; 94660; 96365; 96375; G0480; J0330; J0456; J0696; J2060; J2250; J3490; J7050; J7512; Q9967; U0003; 99291-25; J7030

== ENCOUNTER 2021-01-21 07:49 | Emergency (ER) | payer MEDICARE ==
[~2021-01-21] VITALS: Ht 182.9 cm; Wt 68.0 kg
[~2021-01-21 07:49] MED LIST: PALI156D IM
[2021-01-21] MEDS ORDERED: ASPIRIN ENTERIC COATED 325 MG TABLET.DR. PO ONE (08:00)
[2021-01-21] MEDS ORDERED: IOHEXOL 350 MG/ML 100 ML VIAL. IV ONE (08:00)
--- NOTE | 2021-01-21 08:18 | RAD ---
Exam Date: 01/21/2021 8:[address] HEAD/BRAIN WO Indication: Reason: L sided weakness x 11 hours / Spl. Instructions: / History: TECHNIQUE: Head CT was performed without intravenous contrast. One or more of the following dose re duction techniques were utilized: *Automated exposure control (AEC) *Adjustment of mA and/or kV according to patient size *Use of iterative reconstruction technique *CT scan done according to ALARA, or ALARA/IMAGE GENTLY COMPARISON: October 26, 2020 FINDINGS: The ventricles and sulci are prominent consistent with cerebral volume loss. Patchy ill-defined low attenuation areas in the subcortical and periventricular white matter bilaterally are consistent with microvascular disease. There is no evidence of acute intracranial hemorrhage, extra-axial collecti on, mass effect, midline shift, or acute territorial infarct. No lesion of the skull base or the calv arium is seen. The visualized paranasal sinuses, mastoid air cells and orbits are normal in appearanc e. IMPRESSION: No evidence for acute intracranial abnormality. Volume loss and microvascular disease. Electronically signed by: Jeffry Don MD (01/21/2021 8:16 AM) [id number]
--- NOTE | 2021-01-21 08:23 | RAD ---
Exam Date: 01/21/2021 8:18 AM XR CHEST 1V Indication: Reason: stroke / Spl. Instructions: / History: Comparison: October 28, 2020 FINDINGS/ IMPRESSION: Emphysematous changes are noted. Aorta is calcified. The cardiac silhouette and pulmonary vasculature are within normal limits. There is no focal consolidation, pleural effusion or pneumothorax. Electronically signed by: Jeffry Don MD (01/21/2021 8:20 AM) [id number]
--- NOTE | 2021-01-21 08:26 | EKG ---
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
[2021-01-21 08:30] LABS: BASO % 0 % (0-3); EOS # 0.2 x10^3/uL (0.0-0.7); EOS % 2 % (0-3); HEMATOCRIT 35.6 % (39.0-53.0); HEMOGLOBIN 11.9 g/dL (13.0-17.5); LYMPH # 1.1 x10^3/uL (1.0-4.8); LYMPH % 15 % (24-48); MEAN CORPUSCULAR HEMOGLOBIN 30 pg (25-35); MEAN CORPUSCULAR HGB CONC 34 g/dL (31-37); MEAN CORPUSCULAR VOLUME 90 fL (79-100); MONO # 1.1 x10^3/uL (0.0-1.1); MONO % 14 % (0-9); NEUT # 5.1 x10^3uL (1.8-7.7); NEUT % 68 % (31-73); PLATELET COUNT 342 x10^3/uL (140-400); RED BLOOD COUNT 3.96 x10^6/uL (4.30-5.70); RED CELL DISTRIBUTION WIDTH 12.9 % (11.5-14.5); WHITE BLOOD COUNT 7.4 x10^3/uL (4.0-11.0)
[2021-01-21 08:44] LABS: CALCIUM 8.9 mg/dL (8.5-10.1); CREATININE 0.5 mg/dL (0.7-1.3); POTASSIUM 4.6 mmol/L (3.5-5.1)
[2021-01-21 08:50] LABS: ALBUMIN 3.4 g/dL (3.4-5.0); ALBUMIN/GLOBULIN RATIO 1.1 (1.0-1.7); TOTAL BILIRUBIN 0.5 mg/dL (0.2-1.0); TOTAL PROTEIN 6.4 g/dL (6.4-8.2)
--- NOTE | 2021-01-21 09:14 | RAD ---
EXAM: CTA HEAD AND NECK W/WO CONTRAST DATE: 01/21/2021 8:18 AM INDICATION: L sided weakness x 11 hours / Spl. Instructions: / History: TECHNIQUE: CTA angiogram of the head and neck was obtained after IV bolus administration of 100 cc of Omnipaque 300. The images were sent to workstation and multiplanar reconstructions were obtained. M ultiplanar reconstruction images to include MIP and 3-D reconstruction images are submitted. One or more of the following dose reduction techniques were utilized: Automated exposure control (AEC ), Adjustment of mA and/or kV according to patient size, Use of iterative reconstruction technique coronel ch as ASiR, CT scan done according to ALARA and image gently/image wisely COMPARISON: CT head done earlier the same day. FINDINGS: CTA Head: The visualized distal internal carotid arteries, anterior and middle cerebral arteries are patent and normal caliber. The distal vertebral arteries, basilar artery, and posterior cerebral arteries are p atent and normal caliber. No aneurysm or arteriovenous malformation is seen. CTA Neck: Right carotid: The right common carotid artery is patent and normal caliber. Mild atherosclerosis of the carotid bifurcation. No stenosis of the right internal carotid artery per NASCET criteria. The ri ght external carotid artery is patent. Left carotid: The left common carotid artery is patent and normal caliber. The carotid bifurcation is normal. No stenosis of the left internal carotid artery per NASCET criteria. The left external carot id artery is patent. Right vertebral: The right vertebral artery is patent. Dominant right vertebral artery. Left vertebral: The left vertebral artery is patent. The visualized portions of the aortic arch are normal. The origins of the brachiocephalic and subclav [place] arteries are normal. No cervical lymphadenopathy. The thyroid 2.2 cm nodule. The parotid and submandibular glands are norm al. There are several dental caries. Mild multilevel degenerative disc height loss. Multilevel disc protrusions and marginal osteophytes r esults in multilevel spinal canal stenosis. Multilevel uncovertebral and facet arthrosis with multile daysi neural foraminal narrowing. Upper lungs demonstrate paraseptal and centrilobular emphysema. Bronchial wall thickening and endobro nchial mucous plugging. Few scattered groundglass and nodular opacities. Tracheal secretions. IMPRESSION: 1. No intracranial large vessel occlusion. 2. No stenosis of the cervical carotid or vertebral arteries. 3. Upper lungs demonstrate a few scattered groundglass and nodular opacities, possibly an infectious/ inflammatory process. Recommend three-month follow-up unenhanced chest CT to assess for resolution. 4. Left thyroid 2.2 cm nodule could be further characterized with ultrasound, if not performed previo usly. 5. There are several dental caries. Dental referral is recommended. PQRS Compliance Statement - Stenosis calculations for CT, MR and conventional angiography are based u italo measurement of the distal ICA diameter in accordance with the NASCET methodology. Electronically signed by: Seng Corral MD (01/21/2021 9:11 AM) [id number]
[2021-01-21 09:59] LABS: BACTERIA,URINE 0 /HPF (0-FEW); BILIRUBIN,URINE NEG (NEG); CLARITY,URINE CLEAR; COLOR,URINE YELLOW; GLUCOSE,URINE NEG (NEG); NITRITE,URINE NEG (NEG); RBC,URINE 0 /HPF (0-2); UROBILINOGEN,URINE 0.2 mg/dL (0.2 mg/dL); WBC,URINE 0 /HPF (0-4)
[2021-01-21] MEDS ORDERED: IV NORMAL SALINE 1,000ML 1,000 ML IV ONE (10:45)
--- NOTE | 2021-01-21 12:21 | PHYS DOC ---
Past History Past Medical History: Alcoholism, COPD, Hypertension, Schizophrenia, Other Additional Past Medical Histor: falls, hyponatremia, dysphagia Past Surgical History: No Surgical History Smoking: Cigarettes Alcohol Use: Heavy Social History Narrative: remote history of heavy drug use Adult General Chief Complaint Chief Complaint: NEURO SYMPTOMS/DEFICITS [facility] HPI Patient is a 55-year-old male who presents to the emergency room complaining of left-sided weakness. According to EMS report patient has a left arm and left leg weakness that was noticed yesterday. They try to get him out of bed this morning and he was dragging his left leg so they sent him here to the emergency room. He has been more lethargic than normal. Patient states that he feels very tired and he feels like his left arm and left leg are weak. He does have some slurred speech but he states it is because he cannot stay awake. He has not been ill recently. He does have a history of hyponatremia. Review of Systems Review of Systems Complete ROS is negative unless otherwise documented in HPI Current Medications Current Medications Current Medications Medications (Trade) Dose Ordered Sig/Alba Start Time Stop Time Status Last Admin Dose Admin Aspirin (Aspirin Enteric Coated) 325 mg 1X ONCE 01/21/21 08:00 01/21/21 08:01 DC 01/21/21 09:14 325 MG Iohexol (Omnipaque 350 Mg/ml) 100 ml 1X ONCE 01/21/21 08:00 01/21/21 08:01 DC Sodium Chloride 1,000 ml @ 1,000 mls/hr 1X ONCE 01/21/21 10:45 01/21/21 11:44 DC 01/21/21 10:49 1,000 MLS/HR Allergies Allergies Allergies Coded Allergies Type Severity Reaction Last Updated Verified No Known Drug Allergies 01/21/21 No Physical Exam Physical Exam General: Awake, lethargic. Well Nourished, well hydrated. Cooperative HEENT: Atraumatic, EOMI, PERRL, airway patent, moist oral mucosa Neck: Supple, trachea midline Respiratory: CTA bilaterally, normal effort, no wheezing/crackles CV: RRR, no murmur, cap refill <2 GI: Soft, nondistended, nontender, no masses MSK: No obvious deformities Skin: Warm, dry, intact Neuro: A&O x3, speech NL, 5/5 strength in right upper and right lower extremity distally and proximally, 4 out of 5 strength in the left upper and left lower extremity distally and proximally, CN 2-12 intact, cerebellar testing normal Psych: Normal affect, normal mood, not suicidal or homicidal Current Patient Data Vital Signs Vital Signs Date Time Temp Pulse Resp B/P (MAP) Pulse Ox O2 Delivery O2 Flow Rate FiO2 01/21/21 07:49 98.0 77 22 145/85 (105) 92 Lab Results Laboratory Tests Test 01/21/21 08:04 01/21/21 09:00 01/21/21 09:17 White Blood Count 7.4 x10^3/uL (4.0-11.0) Red Blood Count 3.96 x10^6/uL (4.30-5.70) L Hemoglobin 11.9 g/dL (13.0-17.5) L Hematocrit 35.6 % (39.0-53.0) L Mean Corpuscular Volume 90 fL (79-100) Mean Corpuscular Hemoglobin 30 pg (25-35) Mean Corpuscular Hemoglobin Concent 34 g/dL (31-37) Red Cell Distribution Width 12.9 % (11.5-14.5) Platelet Count 342 x10^3/uL (140-400) Neutrophils (%) (Auto) 68 % (31-73) Lymphocytes (%) (Auto) 15 % (24-48) L Monocytes (%) (Auto) 14 % (0-9) H Eosinophils (%) (Auto) 2 % (0-3) Basophils (%) (Auto) 0 % (0-3) Neutrophils # (Auto) 5.1 x10^3uL (1.8-7.7) Lymphocytes # (Auto) 1.1 x10^3/uL (1.0-4.8) Monocytes # (Auto) 1.1 x10^3/uL (0.0-1.1) Eosinophils # (Auto) 0.2 x10^3/uL (0.0-0.7) Basophils # (Auto) 0.0 x10^3/uL (0.0-0.2) Prothrombin Time 10.1 SEC (9.4-11.4) Prothrombin Time INR 1.0 (0.9-1.1) Activated Partial Thromboplast Time 28 SEC (23-33) Sodium Level 125 mmol/L (136-145) L Potassium Level 4.6 mmol/L (3.5-5.1) Chloride Level 88 mmol/L (98-107) L Carbon Dioxide Level 32 mmol/L (21-32) Anion Gap 5 (6-14) L Blood Urea Nitrogen 12 mg/dL (8-26) Creatinine 0.5 mg/dL (0.7-1.3) L Estimated GFR (Cockcroft-Gault) 172.0 BUN/Creatinine Ratio 24 (6-20) H Glucose Level 107 mg/dL (70-99) H Calcium Level 8.9 mg/dL (8.5-10.1) Total Bilirubin 0.5 mg/dL (0.2-1.0) Aspartate Amino Transferase (AST) 15 U/L (15-37) Alanine Aminotransferase (ALT) 21 U/L (16-63) Alkaline Phosphatase 104 U/L (46-116) Troponin I Quantitative < 0.017 ng/mL (0-0.055) Total Protein 6.4 g/dL (6.4-8.2) Albumin 3.4 g/dL (3.4-5.0) Albumin/Globulin Ratio 1.1 (1.0-1.7) Urine Collection Type Void Urine Color Yellow Urine Clarity Clear Urine pH 7.0 Urine Specific Gould 1.010 Urine Protein Neg (NEG-TRACE) Urine Glucose (UA) Neg mg/dL (NEG) Urine Ketones (Stick) Neg mg/dL (NEG) Urine Blood Neg (NEG) Urine Nitrite Neg (NEG) Urine Bilirubin Neg (NEG) Urine Urobilinogen Dipstick 0.2 mg/dL (0.2 mg/dL) Urine Leukocyte Esterase Neg (NEG) Urine RBC 0 /HPF (0-2) Urine WBC 0 /HPF (0-4) Urine Bacteria 0 /HPF (0-FEW) Glucose (Fingerstick) 112 mg/dL (70-99) H EKG EKG [] Radiology/Procedures Radiology/Procedures [] Heart Score C/O Chest Pain: N/A Risk Factors: Risk Factors: DM, Current or recent (<one month) smoker, HTN, HLP, family history of CAD, obesity. Risk Scores: Risk Factors: DM, Current or recent (<one month) smoker, HTN, HLP, family history of CAD, obesity. Course & Med Decision Making Course & Med Decision Making Pertinent Labs and Imaging studies reviewed. (See chart for details) Patient is a 55-year-old male who presents to the emergency room with greater than 12 hours of left-sided weakness. Patient believes that the weakness has been ongoing for the last 2 to 3 days. Patient was set off as a code stroke. CT head does not show acute abnormality. CT angio was done upon patient's arrival and does not show a large vessel occlusion. Patient does have a sodium of 125. He does have weakness on exam. Patient will be admitted to [facility] as he will likely need an MRI. Fluids were started for low sodium. Dragon Disclaimer Dragon Disclaimer This electronic medical record was generated, in whole or in part, using a voice recognition dictation system. Departure Departure: Impression: Primary Impression: CVA (cerebral vascular accident) Additional Impression: Hyponatremia Disposition: 02 DC/TRF OTHER SHORT TERM HOS Condition: STABLE Referrals: ABIMAEL SUAZO MD (PCP) Problem Qualifiers RYLAND KELLEY MD Jan 21, 2021 12:21
[2021-01-21 12:43] LABS: BARBITURATES NEG (NEG); BENZODIAZEPINES NEG (NEG); CANNABINOIDS NEG (NEG); COCAINE NEG (NEG); METHADONE NEG (NEG); OPIATES NEG (NEG); PHENCYCLIDINE NEG (NEG)
[2021-01-21 12:44] LABS: AMPHETAMINE/METHAMPHETAMINE NEG (NEG)
[2021-01-21] MEDS ORDERED: NICOTINE 14MG PATCH. TD SCH (13:00)
[2021-01-21 15:40] VITALS: BP 108/61
== END 2021-01-21 16:20 | disposition short-term general hospital (02) ==
LOC: ER 07:49
DX: I63.9 Cerebral infarction, unspecified (principal); R53.1 Weakness; I10 Essential (primary) hypertension; E87.1 Hypo-osmolality and hyponatremia; J44.9 Chronic obstructive pulmonary disease, unspecified; F20.9 Schizophrenia, unspecified; F17.210 Nicotine dependence, cigarettes, uncomplicated; F10.20 Alcohol dependence, uncomplicated; Y90.9 Presence of alcohol in blood, level not specified; Z79.899 Other long term (current) drug therapy
CPT/HCPCS: 36415; 70450; 70496; 70498; 71045; 80053; 80307; 81001; 82947; 84484; 85025; 85610; 85730; 93005; 99285; G0480; J7030